=== PATIENT | male | born 1945 | race Caucasian/White ===

== ENCOUNTER → 2018-06-08 | Outpatient (CLI) | payer MEDICARE ==
[~2018-06-08] MED LIST: AMLODIPINE BESYLATE PO; ASPIR 8181 MG PO; ATORVASTATIN CA10 MG PO; BELSOMRA PO; CLOPIDOGREL75 MG PO; DEXILANT60 MG PO; ESSENTIAL DAIL1 EACH PO; FLUOXETINE HCL20 MG PO; HYDROCHLOROTHIA25 MG PO; LISINOPRIL10 MG PO; LYRICA PO; LYRICA75 MG PO; NEXIUM40 MG PO; PEPCID40 MG/5 ML PO; REGADENOSON 0.4 MG/5 ML SYR IV ONE; ULTRAM 50MG50 MG PO; VITAMIN D PO
--- NOTE | 2018-06-08 20:36 | Cardiology Report ---
DATE OF STUDY: June 08, 2018 STRESS TEST PROCEDURE INDICATION: Coronary artery disease, atypical chest pain and shortness of breath. PROCEDURE PERFORMED: Supervision and interpretation of single-day rest and stress technetium and Lexiscan myocardial perfusion stress using SPECT camera. INTERPRETING AND SUPERVISING PHYSICIAN: Dr. Thomas Collins. INTERPRETATION: At rest, heart rate was 67, blood pressure 147/79. EKG shows normal sinus rhythm. After Lexiscan was administered, heart rate tommy to 98 beats per minute, blood pressure increased to 152/81. Rare PVCs were observed. There were no significant ST changes or arrhythmias otherwise throughout stress or recovery. Myocardial perfusion reveals small-sized, moderate severity inferior rest perfusion defect that improves on stress images and a 2nd small-sized, mild severity midanterior perfusion defect that does not extent to septum, lateral or apical segments and improves with gated images. Gated images demonstrate preserved left ventricular systolic function, normal regional wall motion with left ventricular ejection fraction of 66%. CONCLUSION 1. Normal hemodynamic response to Lexiscan stress. 2. Normal electrocardiographic response to Lexiscan stress. 3. Normal myocardial perfusion with small anterior attenuation artifact and a 2nd small inferior attenuation artifact. 4. Preserved left ventricular systolic function with left ventricular ejection fraction of 66%. Job#: [id number] [employer]
== END ==
LOC: NM 10:23
PROVIDERS: ATTEND Internal Medicine Cardiovascular Disease
DX: R07.9 Chest pain, unspecified (principal); I25.10 Atherosclerotic heart disease of native coronary artery without angina pectoris; Z95.1 Presence of aortocoronary bypass graft
CPT/HCPCS: 78452; 93017; 93306; A9502